=== PATIENT | male | born 1995 | race Caucasian/White ===

== ENCOUNTER 2017-08-21 12:30 | Outpatient (CLI) ==
--- NOTE | 2017-08-21 15:00 | MRI ---
EXAM: MRI right knee without contrast COMPARISON: None available. HISTORY: Acute knee pain. TECHNIQUE: Multiplanar noncontrast MR images of the right knee were acquired using a 1.2 Tori magne t. FINDINGS: No recent radiographs of the right knee are available for comparison and radiographic [place] elation is recommended. The medial and lateral menisci are intact without identification of a surfacing meniscal tear. No pa rameniscal cyst. Inversion recovery hyperintense signal along the anterior cruciate ligament related mucoid degenerati on versus a sprain with intact fibers identified. The posterior cruciate ligament is intact. The me dial collateral ligament, lateral collateral ligament complex and posterolateral corner ligaments are intact. Mild patella Christi with minimal patellar/quadriceps tendinosis. No abnormal subluxation of the patell a. Focal edema within the superior and lateral portion of Hoffa's fat pad which is nonspecific but c an be seen in the setting of patellar tendon lateral femoral condyle friction syndrome. 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 No evidence of an acute fracture or osteomyelitis. Sma ll joint effusion. No popliteal cyst or osteochondral body. IMPRESSION: 1. Intact menisci. 2. Mucoid degeneration versus minimal sprain of the anterior cruciate ligament with intact fibers id entified. 3. Moderately severe chondrosis. 4. Patella [place] with minimal patellar/quadriceps tendinosis. Edema within the superior and lateral portion of Hoffa's fat pad which can be seen in the setting of patellar tendon lateral femoral condyl e friction syndrome.
== END 2017-08-21 12:31 | disposition home or self-care (01) ==
LOC: RAD 12:30
PROVIDERS: ATTEND Physician Assistant
DX: M25.561 Pain in right knee (principal)